=== PATIENT | female | born 1995 | race Caucasian/White ===

== ENCOUNTER 2023-11-13 09:23 | Outpatient (CLI) | payer OTHER, SELFPAY ==
[2023-11-13 15:31] LABS: Chlamydia DNA Amplified* NOT DETECTED (No Detected); GC DNA Amplified* NOT DETECTED (No Detected)
== END 2023-11-13 09:24 | disposition home or self-care (01) ==
PROVIDERS: PCP Nurse Practitioner Family; Visit Provider Physician Assistant
DX: Z34.91 Encounter for supervision of normal pregnancy, unspecified, first trimester (principal); Z3A.10 10 weeks gestation of pregnancy
CPT/HCPCS: 76801; 86592; 86703; 86704; 86706; 86762; 86787; 86803; 86850; 86900; 86901; 87086; 87340; 87491; 87591

== ENCOUNTER 2024-01-21 12:40 | Outpatient (CLI) | payer SELFPAY ==
--- NOTE | 2024-01-21 13:00 | CRLHL7_ITS ---
For Patients: As a result of the Century Cures Act, medical imaging exams and procedure reports are released immediately into your electronic medical record. You may view this report before your referring provider. If you have questions, please contact your health care provider. HISTORY: anatomic survey. COMPARISON: Early OB ultrasound report from 11/13/2023 TECHNIQUE: Ultrasound examination of the is performed with transabdominal technique. FINDINGS: A single intrauterine gestation is seen in variable presentation with regular cardiac activity at 144 beats per minute. The placenta is anterior and is free of the cervical os. The placental grade is 0 and the amniotic fluid volume is normal. Single deepest vertical pocket: 3.2 cm. Cervix closed and normal in length at 4.3 cm. BPD: 4.3 cm 19 weeks 0 days HC: 16.6 cm 19 weeks 2 days AC: 16.8 cm 21 weeks 6 days. Ninetieth percentile. FL: 3.1 cm 19 weeks 4 days The estimated age by ultrasound is 19 weeks 6 days, with an estimated date of delivery of 06/10/2024. This correlates well with the clinical age of 20 weeks 1 day and the previous ultrasound. The ultrasound ratios are normal. The estimated weight of 360 grams is at the 70th percentile based on the clinical dates. The anatomic survey demonstrates normal appearing intracranial structures with a normal septum pellucidum and normal cerebellum. The nuchal thickness is normal at 3 mm, and the lateral ventricle is normal in diameter at 8 mm. The upper lip, 4 chamber heart, left and right ventricular outflow tracts, diaphragm, stomach, cord insertion site, 3-vessel cord, kidneys, bladder and spine are normal in appearance. IMPRESSION: 1. Single intrauterine gestation in variable presentation with regular cardiac activity. 2. Estimated gestational age is 19 weeks 6 days. 3. There has been appropriate interval growth. 4. The estimated weight of 360 grams is at the 70th percentile based on the clinical dates. Dictated by Bryn Galvez MD @ 01/22/2024 10:28:56 AM (Electronically Signed)
== END 2024-01-21 12:41 | disposition home or self-care (01) ==
LOC: US 12:41
PROVIDERS: PCP Nurse Practitioner Family; Visit Provider Advanced Practice Midwife
DX: Z34.92 Encounter for supervision of normal pregnancy, unspecified, second trimester (principal); Z3A.19 19 weeks gestation of pregnancy
CPT/HCPCS: 76805

== ENCOUNTER 2024-03-17 10:31 | Outpatient (CLI) | payer SELFPAY | END 2024-03-17 10:32 | disposition home or self-care (01) | LOC: NFLDREF 03-30 22:59 | PROVIDERS: PCP Nurse Practitioner Family; Referring Provider Nurse Practitioner Family; Visit Provider Advanced Practice Midwife | DX: Z34.83 Encounter for supervision of other normal pregnancy, third trimester (principal) | CPT/HCPCS: 86592 ==

== ENCOUNTER 2024-05-12 11:13 | Outpatient (CLI) | payer OTHER, SELFPAY | END 2024-05-12 11:14 | disposition home or self-care (01) | LOC: NFLDREF 05-14 08:44 | PROVIDERS: PCP Nurse Practitioner Family; Referring Provider Nurse Practitioner Family; Visit Provider Advanced Practice Midwife | DX: Z34.83 Encounter for supervision of other normal pregnancy, third trimester (principal) | CPT/HCPCS: 87081; 87653 ==

== ENCOUNTER 2024-05-12 11:52 | Outpatient (CLI) | payer OTHER, SELFPAY ==
--- NOTE | 2024-05-12 12:15 | CRLHL7_ITS ---
For Patients: As a result of the Century Cures Act, medical imaging exams and procedure reports are released immediately into your electronic medical record. You may view this report before your referring provider. If you have questions, please contact your health care provider. ANGELLA by LMP: 06/08/2024. GA: 36w, 1d. Single. INDICATION: Measuring small for dates (fundal height). CERVIX: Visualized. Measurement: 4.2 cm. POSITIONING: Vertex. AMNIOTIC FLUID: 6.6 cm SDP. BIOPHYSICAL PROFILE: Total score: 6. Gross body movements: 2. tone: 2. Respiratory activity: 0. Amniotic fluid: 2. (SDP N: Increase 2 x 1 cm) PLACENTA: Technique: Transabdominal. PLACENTA POSITION: Anterior right wall. DOPPLER: heart rate: 144 bpm. Umbilical artery: 2.2 S/D. Biometry: BPD: 7.7 cm. 31w, 0d, <3 percent. HC: 29.1 cm. 32w, 1d, <3 percent. AC: 31.7 cm. 24w, 4d, 45.8 percent. FL: 6.5 cm. 33w, 4d, <3 percent. FL/AC ratio: 20.53 percent. HC/AC ratio: 0.92. EFW: 2377 g. Weight: 5 lbs, 4 oz. age by this US: 33w, 1d. ANGELLA by this US: 06/29/2024. Percentile by ANGELLA: 9.8 percent. IMPRESSION: 1. Biophysical profile 08/08 with absent respiratory activity. 2. Sonographic gestational age 33 weeks 1 day and sonographic due date 06/29/2024. Sonographic gestational age is 3 weeks behind the clinical age. 3. Estimated weight 10th percentile. Abdominal circumference 46th percentile. 4. BPD, HC and FL all less than 3rd percentile. Overall, findings are concerning for IUGR. 5. Left renal pelvis is dilated up to 9 mm. The bladder is distended and did not empty during the examination. The lateral ventricles appear to be enlarged measuring 17 mm on the right and up to 28.2 mm on the left. Maternal medicine consultation recommended. 6. Umbilical artery Doppler S/D ratio 2.3. Adam Lindo M.D. [email or web address] JEAN/[email or web address] / bM/Dictated by: Adam Lindo MD @ 05/12/2024 5:56:00 PM (Electronically Signed)
== END 2024-05-12 11:53 | disposition home or self-care (01) ==
LOC: US 11:53
PROVIDERS: PCP Nurse Practitioner Family; Visit Provider Advanced Practice Midwife
DX: O36.5930 Maternal care for other known or suspected poor fetal growth, third trimester, not applicable or unspecified (principal); Z3A.36 36 weeks gestation of pregnancy
CPT/HCPCS: 76816; 76819; 76820